=== PATIENT | male | born 1950 | race Caucasian/White ===

== ENCOUNTER → 2020-02-10 | Outpatient (CLI) | payer MEDICARE, OTHER ==
--- NOTE | 2020-02-10 13:00 | RADIOLOGY REPORT (SQ) ---
EXAM DESCRIPTION: KNEE RIGHT 2 VIEWS IMAGES COMPLETED DATE/TIME: 02/10/2020 12:27 pm REASON FOR STUDY: UNILATERAL PRIMARY OSTEOARTHRITIS, RIGHT KNEE,PAIN IN UNSPECIFIED LOWER LEG M79.66 9 PAIN IN UNSPECIFIED LOWER LEG M17.11 UNILATERAL PRIMARY OSTEOARTHRITIS, RIGHT KNEE COMPARISON: None. NUMBER OF VIEWS: Four views. TECHNIQUE: AP, lateral, and both oblique radiographic images acquired of the right knee. LIMITATIONS: None. FINDINGS: MINERALIZATION: Normal. BONES: No acute fracture or dislocation. No worrisome bone lesions. JOINT: No dislocation. No effusion. Scattered tiny osteophytes with mild medial joint space loss. SOFT TISSUES: No soft tissue swelling. No radio-opaque foreign body. OTHER: No other significant finding. IMPRESSION: No evidence of acute bony abnormality. Minimal degenerative change with mild medial joint space loss. TECHNICAL DOCUMENTATION: JOB ID: [id number] 2010 [employer]- All Rights Reserved Reading location - IP/workstation name: [email or web address]
== END ==
LOC: OD 12:06
PROVIDERS: ATTEND Physician Assistant
DX: M17.11 Unilateral primary osteoarthritis, right knee (principal)